=== PATIENT | male | born 1945 ===

== ENCOUNTER 2024-04-01 19:43 | Emergency (ER) | payer MEDICARE ==
[~2024-04-01] VITALS: Ht 172.7 cm; Wt 73.1 kg
[2024-04-01 19:55] VITALS: BP 116/72; TEMP 98.3
[2024-04-01] MEDS ORDERED: tetanus & diphtheria toxoid (Td) vaccine 0.5ml IMVAC ONE (20:30)
[2024-04-01] MEDS: LIDOcaine 1% 30ml preserv. free vial SQ STA (20:56)
[2024-04-01] MEDS: TETanus/Pertussis (Acell)/Diphther VAC/PF (Tdap-Adult) 0.5ml syringe IMVAC ONE (21:22)
[2024-04-01 22:23] VITALS: PULSE 78; RESP 16; O2SAT 98
== END 2024-04-01 22:25 | disposition home or self-care (01) ==
LOC: ER 19:44
DX: S81.811A Laceration without foreign body, right lower leg, initial encounter (principal); W01.0XXA Fall on same level from slipping, tripping and stumbling without subsequent striking against object, initial encounter; Y93.89 Activity, other specified; Y92.89 Other specified places as the place of occurrence of the external cause; Y99.8 Other external cause status
CPT/HCPCS: 12002; 72070; 72100; 90715; 99284; A6258; A6402; G0008; Z7610; 90471; A6449